=== PATIENT | female | born 1985 | race Caucasian/White ===

== ENCOUNTER → 2021-12-22 14:21 | Outpatient (CLI) | payer BC, SELFPAY ==
--- NOTE | 2021-12-22 14:29 | CA_ITS ---
APPROVED REPORT EXAM: Comprehensive 2D, Doppler, and color-flow Echocardiogram [employer]ker: Tanvi Henao, RT(R) Ht: 5 ft 5 in Wt: 190lbs BSA: 1.94 BP: 133/82 mmHg Indications: murmur, ordered as a bubble study. Echo Enhancing Agent Indication: Rule out Shunt Agent(s) / Amount(s) Used: Optison, Agitated Saline 20 cc 2D Dimensions LVOT 2.01 cm (M/F) 1.5-2.5 LVEF (Santizo's) 52.70 % F: 54 - 74 LV Volume 100.20 mL F: 46 - 106 LV Volume Index 51.91 mL/m2 F: 29 - 61 LA Volume 41.40 mL LA Volume Index 21.45 mL/m2 (M/F) 16-34 M-Mode Dimensions RVDd 2.54 cm (0.9-2.6) LA Diam 2.48 cm (1.9-4.0) LVDd 4.67 cm (3.5-5.7) Ao Diam 2.52 cm (2.0-3.7) LVDs 3.70 cm (3.5-5.7) IVSd 0.56 cm (0.6-1.1) PWd 0.56 cm (0.6-1.1) EF (Teich) 42.40% FS 20.80% EDV (Teich) 100.80 mL ESV (Teich) 58.10 mL LV Diastology E Decel Time 190.00 (160-240 msec) E/A Ratio 1.6 MED E' 11.80 (< 7 cm/sec) E'/MED E' Ratio 8.08 (>14) LAT E' 15.30 (<10 cm/sec) E/LAT E' Ratio 6.24 (>14) Mitral Valve MV E Max Jamil. 95.00 (40-130 cm/s) MV A Velocity 60.00 (40-130 cm/s) E/A Ratio 1.59 MV Decel. Time 190.00 (160-240 ms) MV PHT 56.00 ms Left Ventricle Left atrium is normal size, left ventricle is normal size, there is no concentric left ventricular hypertrophy, visually estimated ejection fraction 55% with no regional wall motion abnormality. Diastolic parameters are within normal range. Right Ventricle Right atrium and right ventricle are normal size and contractility. Atria Intra-atrial septum is intact, agitated saline contrast study identified right to left shunt likely PFO. Aortic Valve Aortic valve is minimally fibrosed, there is no aortic stenosis or aortic insufficiency. Mitral Valve Mitral valve is grossly normal, there is trace mitral regurgitation. Tricuspid Valve Tricuspid valve grossly normal, there is trace tricuspid regurgitation. Pulmonic Valve Pulmonic valve is poorly visualized. Great Vessels Aortic root is normal size. Inferior vena cava is normal size with normal inspiratory collapse. Pericardium No significant pericardial effusion noted. Conclusion 1. Normal left ventricular size, preserved left ventricular systolic function, visually estimated ejection fraction 55% with no regional wall motion abnormality, diastolic parameters are within normal range. 2. Patent foramen ovale with [id number] shunt. 3. Trace mitral and tricuspid regurgitation. 4. No significant pericardial effusion noted. 5. Inferior vena cava is normal size with normal inspiratory collapse. Electronically signed by : Stanton Gaona MD 12/24/2021 14:57:33
== END ==
PROVIDERS: PCP Internal Medicine Adolescent Medicine; Visit Provider Internal Medicine Adolescent Medicine
DX: R01.1 Cardiac murmur, unspecified (principal); R29.818 Other symptoms and signs involving the nervous system
CPT/HCPCS: 93306

== ENCOUNTER → 2022-06-02 10:55 | Outpatient (CLI) | payer BC, SELFPAY ==
[2022-06-02 11:23] LABS: Basophils # 0.1 K/mm3 (0-0.2); Basophils % 1.3 % (0.1-2.0); Eosinophils # 0.1 K/mm3 (0.0-0.4); Eosinophils % 1.1 % (0.1-12.0); Lymphocytes % 27.5 % (10-50); Mean Corpuscular HGB Conc 31.5 g/dL (31.8-35.4); Mean Corpuscular Hemoglobin 25.6 pg (27.0-31.2); Mean Corpuscular Volume 81.2 fl (81-99); Mean Platelet Volume 8.7 fl (7.4-10.4); Monocytes # 0.5 K/mm3 (0.1-1.0); Monocytes % 7.3 % (1.7-9.3); Neutrophils # 4.5 K/mm3 (1.8-7.8); Neutrophils % 62.8 % (37.0-80.0); Platelet Count 296 K/mm3 (142-424); Red Blood Count 4.32 M/mm3 (4.20-5.40); Red Cell Distribution Width 15.2 % (11.5-17.5); White Blood Count 7.2 K/mm3 (4.8-10.8)
[2022-06-02 11:59] LABS: Chloride 106 mmol/L (98-107); Potassium 4.2 mmoL/L (3.5-5.1); Sodium 139 mmol/L (136-145)
[2022-06-02 12:01] LABS: Blood Urea Nitrogen 11 mg/dl (7-17)
[2022-06-02 12:02] LABS: Alanine Aminotransferase 17 U/L (12-78); Albumin Level 4.3 g/dl (3.5-5.0); Albumin/Globulin Ratio 1.4 (1.1-1.8); Alkaline Phosphatase 73 U/L (38-126); Anion Gap 13.2 mEq/L (5-15); Aspartate Amino Transferase 19 U/L (14-36); Bilirubin,Total 0.6 mg/dl (0.2-1.3); Carbon Dioxide 24 mmol/L (22.0-30.0); Estimated Glomerular Filt Rate 114 ml/min (>60); GFR (African American) 138 ML/MIN (>60); Globulin 3.1 g/dL (1.3-3.2); Total Protein,Serum 7.4 g/dl (6.3-8.2)
[2022-06-02 12:03] LABS: Calcium 9.2 mg/dl (8.4-10.2); Glucose 111 mg/dl (74-100)
[2022-06-02 12:08] LABS: C-Reactive Protein 8.5 mg/L (0-4)
[2022-06-02 12:16] LABS: Erythrocyte Sedimentation Rate 44 mm/hr (0-20)
[2022-06-06 10:39] LABS: Antinuclear Antibodies, IFA Negative (.)
[2022-06-06 23:14] LABS: Anti-Cyclic Citrullinated Pept 11 units (0-19)
== END ==
PROVIDERS: PCP Internal Medicine Adolescent Medicine; Visit Provider Internal Medicine Adolescent Medicine
DX: R21 Rash and other nonspecific skin eruption (principal); M12.9 Arthropathy, unspecified
CPT/HCPCS: 36415; 80053; 85025; 85651; 86038; 86140; 86200